=== PATIENT | male | born 1985 | race African-American/Black ===

== ENCOUNTER 2017-01-16 00:06 | Emergency (ER) | payer OTHER ==
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
[~2017-01-16 00:06] MED LIST: PROZAC PO
== END 2017-01-16 03:04 | disposition home or self-care (01) ==
LOC: CFTX 00:06 → CED 00:06 → CFTX 01:27
DX: S80.02XA Contusion of left knee, initial encounter (principal); Z79.899 Other long term (current) drug therapy; V43.52XA Car driver injured in collision with other type car in traffic accident, initial encounter
CPT/HCPCS: 73562; 99284